=== PATIENT | male | born 1940 | race African-American/Black ===

== ENCOUNTER 2017-08-14 09:15 | Emergency (ER) | payer OTHER ==
[~2017-08-14] VITALS: Ht 172.7 cm; Wt 69.0 kg
[2017-08-14] MEDS ORDERED: SODIUM CHLORIDE 0.9% 1,000 ML IV ONE (09:50)
[2017-08-14] MEDS ORDERED: KETOROLAC 30MG/ML VIAL IV STA (09:50)
[2017-08-14 10:26] LABS: HEMATOCRIT. 26.1 % (42.0-52.0); HEMOGLOBIN. 8.9 g/dL (14.0-18.0); MEAN CORPUSCULAR HEMOGLOBIN 27.9 pg (28.0-32.0); MEAN CORPUSCULAR VOLUME 81.4 fL (80.0-94.0); MEAN PLATELET VOLUME 8.7 fl (7.4-10.4); PLATELET 415 x1000/uL (130-400); RED BLOOD CELL COUNT 3.21 mill/uL (4.7-6.1); RED CELL DISTRIBUTION WIDTH 20.3 % (11.6-14.6)
[2017-08-14 10:42] LABS: INR 1.6; PARTIAL THROMBOPLASTIN TIME 30.3 sec (23.4-31.0); PROTHROMBIN TIME 17.1 sec (9.4-11.6)
[2017-08-14 11:00] LABS: PLATELET ESTIMATE INCREASED
[2017-08-14] MEDS ORDERED: ONDANSETRON HCL 4MG/2ML VIAL IV STA (12:40)
[2017-08-14] MEDS ORDERED: MORPHINE SULFATE 4 MG/ML CPJ (NOT FOR IM USE) IV STA (12:40)
[2017-08-14 13:48] LABS: KETONES URINE TRACE (NEGATIVE); LEUKOCYTE ESTERASE URINE 3+ (NEGATIVE); NITRITE URINE POSITIVE (NEGATIVE); OCCULT BLOOD URINE 3+ (NEGATIVE); PROTEIN URINE 2+ (NEGATIVE); SPECIFIC GRAVITY URINE 1.016 (1.005-1.030)
[2017-08-14 14:15] LABS: CLARITY URINE CLOUDY (CLEAR); COLOR URINE AMBER (YELLOW)
[2017-08-14 16:04] VITALS: BP 155/74
[2017-08-14] MEDS ORDERED: CEFTRIAXONE 1 G PREMIX 50 ML IV ONE (16:15)
== END 2017-08-14 17:41 | disposition short-term general hospital (02) ==
LOC: ER 09:28
DX: C79.51 Secondary malignant neoplasm of bone (principal); N17.9 Acute kidney failure, unspecified; R51 Headache; M79.651 Pain in right thigh; F03.90 Unspecified dementia, unspecified severity, without behavioral disturbance, psychotic disturbance, mood disturbance, and anxiety; E78.00 Pure hypercholesterolemia, unspecified; E11.9 Type 2 diabetes mellitus without complications; I10 Essential (primary) hypertension; F17.200 Nicotine dependence, unspecified, uncomplicated; Z88.8 Allergy status to other drugs, medicaments and biological substances; Z86.73 Personal history of transient ischemic attack (TIA), and cerebral infarction without residual deficits; Z85.46 Personal history of malignant neoplasm of prostate; Z85.89 Personal history of malignant neoplasm of other organs and systems; W06.XXXA Fall from bed, initial encounter; Y93.89 Activity, other specified; Y99.8 Other external cause status; Y92.89 Other specified places as the place of occurrence of the external cause
CPT/HCPCS: 36415; 51702; 70450; 71045; 73502; 73552; 80048; 81003; 82962; 85025; 85610; 85730; 86850; 86900; 86901; 87077; 87086; 87186; 93005; 96361; 96374; 96375; 99285; J1885; J2270; J2405; J7030